=== PATIENT | female | born 1950 | race Hispanic/Latino ===

== ENCOUNTER → 2025-01-12 | Day surgery (SDC) | payer OTHER ==
[~2025-01-12] MED LIST: ENSURE ACTIVE237 M1 PO; LIDOCAINE HCL 2% LOCAL INJ 5 ML SDV VIAL INJ ONE; MULTI-VITAMIN1 EACH PO; PROPOFOL IV EMULSION 10 MG/ML 20 ML VIAL ONE; VITAMIN C500 MG PO; VITAMIN D31 ML PO
[2025-01-12 08:27] LABS: BASOPHILS % 0.7 % (0.0-1.0); EOSINOPHILS # (AUTO) 0.2 (0.0-0.4); EOSINOPHILS % 3.8 % (0.0-6.0); HEMATOCRIT 41.4 % (34.2-44.1); HEMOGLOBIN 12.9 g/dL (12.0-16.0); LYMPHOCYTES # (AUTO) 0.9 (1.0-3.2); MEAN CORPUSCULAR HEMOGLOBIN 28.5 pg (28-32); MEAN CORPUSCULAR HGB CONC 31.2 g/dL (31-35); MEAN CORPUSCULAR VOLUME 91.4 fL (81-99); MONOCYTES # (AUTO) 0.3 (0.2-0.8); MONOCYTES % 6.4 % (4.4-11.3); NEUTROPHILS # (AUTO) 2.9 (2.1-6.9); NEUTROPHILS % 68.9 % (38.7-80.0); PLATELET COUNT 258 x10e3/uL (140-360); RED BLOOD COUNT 4.53 x10e6/uL (3.6-5.1); RED CELL DISTRIBUTION WIDTH 14.8 % (11.7-14.4); WHITE BLOOD COUNT 4.24 x10e3/uL (4.8-10.8)
[2025-01-12] MEDS: LACTATED RINGER'S 1,000 ML ONE (08:42)
[2025-01-12 10:15] VITALS: TEMP 97.8
[2025-01-12 10:30] VITALS: BP 122/81; PULSE 64; RESP 14; O2SAT 96
== END | disposition home or self-care (01) ==
LOC: OR 07:41
PROVIDERS: ATTEND Internal Medicine Gastroenterology
DX: R13.10 Dysphagia, unspecified (principal); K29.50 Unspecified chronic gastritis without bleeding; B96.81 Helicobacter pylori [H. pylori] as the cause of diseases classified elsewhere; K31.A12 Gastric intestinal metaplasia without dysplasia, involving the body (corpus); K44.9 Diaphragmatic hernia without obstruction or gangrene; K59.00 Constipation, unspecified; R03.0 Elevated blood-pressure reading, without diagnosis of hypertension; Z85.819 Personal history of malignant neoplasm of unspecified site of lip, oral cavity, and pharynx; Z92.21 Personal history of antineoplastic chemotherapy; Z92.3 Personal history of irradiation
CPT/HCPCS: 36415; 43239; 85025; 93005; J2003; J2704; J7121

== ENCOUNTER → 2025-05-31 | Outpatient (RCR) | payer OTHER ==
[~2025-05-31] MED LIST changes: -LIDOCAINE HCL 2% LOCAL INJ 5 ML SDV VIAL INJ ONE; -PROPOFOL IV EMULSION 10 MG/ML 20 ML VIAL ONE
== END ==
LOC: ST 05-17 16:50
PROVIDERS: ATTEND Nurse Practitioner Family
DX: R13.13 Dysphagia, pharyngeal phase (principal)

== ENCOUNTER 2025-06-28 10:54 | Outpatient (RCR) | payer MEDICARE, OTHER | END 2025-07-01 | LOC: ST 10:54 | PROVIDERS: ATTEND Nurse Practitioner Family | DX: R13.13 Dysphagia, pharyngeal phase (principal) | CPT/HCPCS: 92610 ==

== ENCOUNTER → 2025-06-30 | Outpatient (REF) | payer MEDICARE, OTHER | LOC: DX 10:23 | PROVIDERS: ATTEND Nurse Practitioner Family | DX: R13.13 Dysphagia, pharyngeal phase (principal) | CPT/HCPCS: 74230 ==